=== PATIENT | female | born 1955 | race American Indian/Alaskan Native ===

== ENCOUNTER 2017-10-16 17:54 | Inpatient (IN) | payer BC, OTHER ==
[2017-10-16] MEDS ORDERED: LASIX IV ONE (18:33)
--- NOTE | 2017-10-16 18:49 | Emergency Department Report ---
HPI - HPI HPI: The patient is a 61-year-old female with a history of heart failure, sleep apnea , hypothyroidism, and a pituitary tumor for the past 20-30 years who presents for evaluation of dyspnea. The patient reports constant and severe dyspnea last night, exacerbated with exertion or lying down. She also reports experiencing an on and off cough for the past couple weeks. She admits to episodes of tightness of the chest as well, not present currently. She has secondary complaint of off and on shaking of the extremities, not associated with a loss of consciousness. She admits to generalized weakness, but has not experienced any lateralizing focal motor deficit. She denies fever, abdominal pain, vomiting, diarrhea, hemoptysis, syncope, unilateral leg swelling, paresthesia, rash. <MERLYN MOON - Last Filed: 10/16/17 19:32> <ANAYA PAYAN - Last Filed: 10/17/17 00:41> - General Time Seen by Provider: 10/16/17 18:20 ED Past Medical Hx - Past Medical History Previous Medical History?: Yes Hx Hypertension: Yes Hx Congestive Heart Failure: Yes Hx Diabetes: Yes Hx Pulmonary Embolism: Yes Hx GERD: Yes Hx Sickle Cell Disease: No (SST) Hx Arthritis: Yes Hx Headaches / Migraines: Yes Additional medical history: thyroid/ low platelets/ pe years ago, hx pituitary tumor - Surgical History Past Surgical History?: Yes Additional Surgical History: c section/ spleenectomy/ fibroids - Social History Smoking Status: Never Smoker Substance Use Type: None <MERLYN MOON - Last Filed: 10/16/17 19:32> <ANAYA PAYAN - Last Filed: 10/17/17 00:41> - Medications Home Medications: Home Medications Medication Instructions Recorded Confirmed Last Taken Type Cetirizine HCl 10 mg PO DAILY 03/12/14 03/12/14 03/11/14 History Ergocalciferol [Vitamin D2] 50,000 units PO QWEEK 03/12/14 03/12/14 03/07/14 History Furosemide 20 mg PO DAILY 03/12/14 03/12/14 03/11/14 History Glimepiride 2 mg PO DAILY 03/12/14 03/12/14 03/11/14 History Levothyroxine [Synthroid] 150 mcg PO DAILY 03/12/14 03/12/1403/11/15 History Metoprolol Succinate [Metoprolol 50 mg PO DAILY 03/12/14 03/12/14 03/11/14 History SUCCINATE ER TAB] Olmesartan Medoxomil [Benicar] 40 mg PO DAILY 03/12/14 03/12/14 03/11/14 History Omeprazole 20 mg PO DAILY 03/12/14 03/12/14 03/11/14 History Potassium 10 meq PO DAILY 03/12/14 03/12/14 03/11/14 History hydroCHLOROthiazide [HCTZ] 12.5 mg PO DAILY 03/12/14 03/12/14 03/11/14 History ED Review of Systems ROS: Stated complaint: CHERYL Other details as noted in HPI Constitutional: denies: fever ENT: denies: throat or neck pain Respiratory: reports cough, shortness of breath Cardiovascular: reports chest tightness Endocrine: denies unexplained weight loss or gain Gastrointestinal: denies: abdominal pain, nausea Genitourinary: denies: dysuria Musculoskeletal: denies: leg swelling Skin: denies: rash Neurological: reports tremor denies: headache Hematological/Lymphatic: denies: easy bleeding or easy bruising Psych: denies sadness or hopelessness <MERLYN MOON - Last Filed: 10/16/17 19:32> ROS: Stated complaint: CHERYL Other details as noted in HPI <ANAYA PAYAN - Last Filed: 10/17/17 00:41> Physical Exam - Physical Exam Vital Signs: Vital Signs 10/16/17 10/16/17 18:15 18:26 Temperature 99.5 F Pulse Rate 97 H Blood Pressure 169/70 169/70 O2 Sat by Pulse 98 95 Oximetry Physical Exam: General: well-nourished, well-developed, no acute distress Head: Normocephalic, atraumatic Eyes: normal sclera ENT: Mucous membranes are pink and moist Neck: trachea midline, neck supple, No neck stiffness, no cervical adenopathy Respiratory: Breath sounds equal bilaterally, no wheezing, rales, or rhonchi Cardio: S1 and S2 present, no murmurs, rubs, gallops, capillary refill is brisk Abdomen: Normoactive bowel sounds, soft abdomen, no rigidity, no guarding or rebound tenderness Chest WALL/Back: No tenderness to palpation of the chest wall, no CVA tenderness with percussion Musc: 1+ pitting edema of bilateral lower legs Skin: No rash Neuro: no facial drooping, normal speech Psych: Normal affect <MERLYN MOON P - Last Filed: 10/16/17 19:32> - Physical Exam Vital Signs: Vital Signs 10/16/17 10/16/17 10/16/17 18:15 18:26 18:45 Temperature 99.5 F Pulse Rate 97 H 84 Respiratory 13 Rate Blood Pressure 169/70 169/70 169/70 O2 Sat by Pulse 98 95 96 Oximetry 10/16/17 10/16/17 10/16/17 19:19 20:23 20:25 Temperature Pulse Rate 73 Respiratory 18 10 L 26 H Rate Blood Pressure 169/70 131/68 O2 Sat by Pulse 98 94 Oximetry 10/16/17 10/16/17 10/16/17 20:31 21:00 22:01 Temperature Pulse Rate 71 76 69 Respiratory 15 30 H Rate Blood Pressure 131/68 125/72 131/68 O2 Sat by Pulse 97 92 Oximetry 10/16/17 22:31 Temperature Pulse Rate 71 Respiratory 15 Rate Blood Pressure 125/72 O2 Sat by Pulse 95 Oximetry <ANAYA PAYAN - Last Filed: 10/17/17 00:41> ED Course Vital Signs 10/16/17 10/16/17 18:15 18:26 Temperature 99.5 F Pulse Rate 97 H Blood Pressure 169/70 169/70 O2 Sat by Pulse 98 95 Oximetry <MERLYN MOON P - Last Filed: 10/16/17 19:32> Vital Signs 10/16/17 10/16/17 10/16/17 18:15 18:26 18:45 Temperature 99.5 F Pulse Rate 97 H 84 Respiratory 13 Rate Blood Pressure 169/70 169/70 169/70 O2 Sat by Pulse 98 95 96 Oximetry 10/16/17 10/16/17 10/16/17 19:19 20:23 20:25 Temperature Pulse Rate 73 Respiratory 18 10 L 26 H Rate Blood Pressure 169/70 131/68 O2 Sat by Pulse 98 94 Oximetry 10/16/17 10/16/17 10/16/17 20:31 21:00 22:01 Temperature Pulse Rate 71 76 69 Respiratory 15 30 H Rate Blood Pressure 131/68 125/72 131/68 O2 Sat by Pulse 97 92 Oximetry 10/16/17 22:31 Temperature Pulse Rate 71 Respiratory 15 Rate Blood Pressure 125/72 O2 Sat by Pulse 95 Oximetry <ANAYA PAYAN - Last Filed: 10/17/17 00:41> ED Medical Decision Making - Lab Data Result diagrams: 10/16/17 18:35 10/16/17 18:35 - Medical Decision Making The patient was seen and examined by myself. The patient is placed on a monitor worker and continuous pulse ox. On initial evaluation, the patient was found to be in no distress. EKG was negative for findings suggestive of acute cardiac infarct. The patient is given lasix for txt of suspected CHF. Labs and imaging are obtained. Chest x-ray exhibits some mild pulmonary vascular congestion. ABG reveals low PaO2 of 61. Lab results otherwise were non-revealing including negative troponin , WBC, hemoglobin, hematocrit, electrolytes, renal function, ammonia level, and BNP. As patient is found to be hypoxemic with normal BNP, and without obvious other source of hypoxemia, the patient will receive CT angiogram of the chest to rule out pulmonary embolism. CTA is pending. The patient was signed off to Dr. Payan, who agrees accept care of the patient and to ultimately arrange appropriate disposition of the patient. <MERLYN MOON Dalton - Last Filed: 10/16/17 19:32> - Lab Data Result diagrams: 10/16/17 18:35 10/16/17 18:35 - EKG Data -: EKG Interpreted by Oh - EKG Data 10/17/17 00:30 EKG shows sinus rhythm rate of 78 axis leftward intervals are normal there is incomplete right bundle branch block and left anterior fascicular block present. Patient has LVH N [facility] ST elevation or depression time of interpretation 1948 - Radiology Data Nuclear Medicine Report Signed Patient: DARLYN CANNON MR#: [id number] : 1955 Acct:[id number] Age/Sex: 61 / F ADM Date: 10/16/17 Loc: ED Attending Dr: Ordering Physician: ANAYA PAYAN MD Date of Service: 10/16/17 Procedure(s): NM lung scan perf/vent Accession Number(s): [id number] cc: ANAYA PAYAN MD FINAL REPORT PROCEDURE: NM LUNG SCAN PERF/VENT TECHNIQUE: 4.7 mCi Tc-99m MAA was injected IV for pulmonary perfusion imaging in multiple projections. 25.2 millicuries 133 Xenon was inhaled for pulmonary ventilation imaging in multiple projections. Injection site: RIGHT antecubital fossa. CPT 75016 . HISTORY: dyspnea, hypoxia COMPARISON: No prior studies are available for comparison. FINDINGS: There is a large perfusion defect involving the posterior basal segment of the left lower lobe. Small perfusion defect visualized posterior basal segment right lower lobe. On the ventilation portion the scanned no definite defects are identified. Normal wash-in and washout visualized. IMPRESSION: Intermediate probability pulmonary embolus. Transcribed By: BONNY Dictated By: RIZWAN MORENO MD Electronically Authenticated By: RIZWAN MORENO MD Signed Date/Time: 10/16/172238 - Medical Decision Making The patient is a [place] patient did speak with Dr. Mcguire with [facility] who stated that they believe the patient should stay at our facility for treatment. Discussed case with Dr. alexander Raya with the hospitalist group. Even though the patient has a history of thrombocytopenia platelet count fine at this time. Patient be given first dose of Lovenox and hematology may be consult it to discuss further management for PE. Patient is on 2 L of oxygen and was otherwise stable patient be admitted at this time. <ANAYA PAYAN - Last Filed: 10/17/17 00:41> Critical care attestation.: If time is entered above; I have spent that time in minutes in the direct care of this critically ill patient, excluding procedure time. <MERLYN MOON P - Last Filed: 10/16/17 19:32> Critical Care Time: Yes (30) Critical care attestation.: If time is entered above; I have spent that time in minutes in the direct care of this critically ill patient, excluding procedure time. <ANAYA PAYAN - Last Filed: 10/17/17 00:41> ED Disposition Is pt being admited?: Yes Does the pt Need Aspirin: Yes Time of Disposition: 18:52 <MERLYN MOON - Last Filed: 10/16/17 19:32> Is pt being admited?: Yes Does the pt Need Aspirin: No <ANAYA PAYAN - Last Filed: 10/17/17 00:41> Clinical Impression: Acute chest pain, Acute hypoxemic respiratory failure Pulmonary embolism Qualifiers: Pulmonary embolism type: other Chronicity: acute Acute cor pulmonale presence: without acute cor pulmonale Qualified Code(s): I26.99 - Other pulmonary embolism without acute cor pulmonale Disposition: DC-09 OP ADMIT IP TO THIS HOSP Condition: Fair Instructions: Chest Pain (ED) Referrals: PRIMARY CARE,MD [Primary Care Provider] - 3-5 Days
[2017-10-16] MEDS ORDERED: BABY ASPIRIN PO ONE (18:53)
[2017-10-16 18:55] LABS: Basophils # (Auto) 0.1 K/mm3 (0.0-0.1); Basophils % (Auto) 0.7 % (0.0-1.8); Eosinophils # (Auto) 0.3 K/mm3 (0.0-0.4); Eosinophils % (Auto) 2.7 % (0.0-4.3); Hematocrit 42.5 % (30.3-42.9); Hemoglobin 13.9 gm/dl (10.1-14.3); Lymphocytes # (Auto) 3.3 K/mm3 (1.2-5.4); Lymphocytes % (Auto) 27.9 % (13.4-35.0); Mean Corpuscular HGB Conc 33 % (30-34); Mean Corpuscular Hemoglobin 30 pg (28-32); Mean Corpuscular Volume 91 fl (79-97); Monocytes # (Auto) 1.1 K/mm3 (0.0-0.8); Monocytes % (Auto) 9.2 % (0.0-7.3); Platelet Count 160 K/mm3 (140-440); Red Blood Count 4.65 M/mm3 (3.65-5.03); Red Cell Distribution Width 14.1 % (13.2-15.2)
[2017-10-16 19:16] LABS: Alanine Aminotransferase 37 units/L (7-56); Albumin 3.9 g/dL (3.9-5); BUN/Creatinine Ratio 14; Blood Urea Nitrogen 13 mg/dL (7-17); Calcium 9.3 mg/dL (8.4-10.2); Hemolysis Index 11
--- NOTE | 2017-10-16 19:33 | XRay Report ---
FINAL REPORT PROCEDURE: XR CHEST 1V AP TECHNIQUE: Chest radiograph anteroposterior view. CPT 26573 HISTORY: dyspnea COMPARISON: No prior studies are available for comparison. FINDINGS: Heart: Magnified due to projection appears to be upper normal size.. Mediastinum/Vessels: Normal. Lungs/Pleural space: Normal. Bony thorax: No acute osseous abnormality. Life support devices: None. IMPRESSION: Heart size upper normal. No other abnormalities are identified..
--- NOTE | 2017-10-16 20:17 | Cat Scan Report ---
FINAL REPORT PROCEDURE: CT HEAD/BRAIN WO CON TECHNIQUE: Computerized tomography of the head was performed without contrast material. HISTORY: tremor weak, 30 yr hx of stable pituitary tumor COMPARISON: No prior studies are available for comparison. FINDINGS: Brain: Brain density appears normal. No evidence of intracranial hemorrhage. No parenchymal hemorrhage, mass lesions or mass effect are seen. No abnormal extraxial fluid collects or masses are seen. Sella turcica appears larger than expected. I cannot exclude pituitary enlargement or mass. This could be an artifact from an empty sella. Ventricles: Ventricles are normal size and are midline. Cavum septum pellucidum present, normal variant. Bone Windows: No evidence of skull fracture. Paranasal sinuses: Visualized portions appear clear. Mastoid air cells: Clear IMPRESSION: No acute intracranial abnormalities are seen. Prominent sella turcica as described. If further evaluation is clinically indicated MRI could be performed. No acute intracranial abnormalities are identified.
--- NOTE | 2017-10-16 22:41 | Nuclear Medicine Report ---
FINAL REPORT PROCEDURE: NM LUNG SCAN PERF/VENT TECHNIQUE: 4.7 mCi Tc-99m MAA was injected IV for pulmonary perfusion imaging in multiple projections. 25.2 millicuries 133 Xenon was inhaled for pulmonary ventilation imaging in multiple projections. Injection site: RIGHT antecubital fossa. CPT 98672 . HISTORY: dyspnea, hypoxia COMPARISON: No prior studies are available for comparison. FINDINGS: There is a large perfusion defect involving the posterior basal segment of the left lower lobe. Small perfusion defect visualized posterior basal segment right lower lobe. On the ventilation portion the scanned no definite defects are identified. Normal wash-in and washout visualized. IMPRESSION: Intermediate probability pulmonary embolus.
[2017-10-17] MEDS ORDERED: LOVENOX SUB-Q ONE (00:39)
[2017-10-17] MEDS ORDERED: MORPHINE IV PRN (02:46)
[2017-10-17] MEDS ORDERED: TYLENOL PO PRN (02:47)
[2017-10-17] MEDS ORDERED: ZOFRAN IV PRN (02:47)
[2017-10-17] MEDS ORDERED: D50W (25GM) Syringe IV PRN (02:58)
--- NOTE | 2017-10-17 06:09 | History and Physical Report ---
CHIEF COMPLAINT: Difficulty in breathing. HISTORY OF PRESENT ILLNESS: The patient is a 61-year-old female who said that she has been having shortness of breath going on since last night, which was exacerbated by lying down. There was also some chest discomfort and the patient said that these symptoms were preceded by a cough that was coming on and off. The patient described the chest discomfort as tightness in the chest. There was no history of the diaphoresis, but the patient admitted to feeling weak all over and denied history of fever, nausea or vomiting and presented for evaluation. PAST MEDICAL HISTORY: Pertinent for hypertension, congestive heart failure, diabetes mellitus, pulmonary embolism, gastroesophageal reflux disease, arthritis, migraine headache, thrombocytopenia, pituitary tumor, thyroid disease. PAST SURGICAL HISTORY: Pertinent for splenectomy, fibroid surgery, . FAMILY HISTORY: Family history is noncontributory. SOCIAL HISTORY: The patient does not smoke, does not drink alcohol and does not use illicit drugs. MEDICATIONS: The patient is on cetirizine 10 mg by mouth daily, vitamin D3 50,000 units by mouth every week, Lasix 20 mg by mouth daily, glimepiride 2 mg by mouth daily, levothyroxine (Synthroid) 150 mcg by mouth daily, metoprolol succinate 50 mg by mouth daily, Benicar 40 mg by mouth daily, omeprazole 20 mg by mouth daily, potassium supplement 10 mEq by mouth daily, hydrochlorothiazide 12.5 mg by mouth daily. ALLERGIES: THE PATIENT IS ALLERGIC TO DIPHENHYDRAMINE HYDROCHLORIDE AND IODINE. REVIEW OF SYSTEMS: CONSTITUTIONAL: There is no fever, no chills, no diaphoresis. HEENT: There is no headache or sore throat. CARDIOVASCULAR SYSTEM: There is chest tightness with no orthopnea. RESPIRATORY SYSTEM: Shortness of breath is present. Cough is present. GASTROINTESTINAL SYSTEM: There is no nausea, no vomiting. No abdominal pain, diarrhea, or constipation. NEUROLOGICAL SYSTEM: There is no numbness, no dizziness, no altered mental status. MUSCULOSKELETAL SYSTEM: There is no joint pain or swelling. DERMATOLOGICAL SYSTEM: There is no skin rash or itching. GENITOURINARY SYSTEM: There is no dysuria, hematuria, or flank pain. Rest of system review is normal. PHYSICAL EXAMINATION: GENERAL: At the time of exam, the patient was found to be alert, oriented x 3 and not in acute distress. VITAL SIGNS: Show temperature of 99.5 degrees Fahrenheit, pulse of 97, respiration of 18, blood pressure of 169/70, O2 sat of 98% on room air. HEENT: Shows pupils to be equal, round, reactive to light and accommodation. Extraocular muscles are intact. NECK: Supple with no JVD or carotid bruit. CARDIOVASCULAR SYSTEM: Shows normal first and second heart sounds with no gallops or murmurs. RESPIRATORY SYSTEM: Shows good air entry on both sides of the lung with no abnormal breath sounds. GASTROINTESTINAL SYSTEM: Shows abdomen to be full, soft, nontender with no organomegaly or rigidity. NEUROLOGIC: Shows no focal deficit. MUSCULOSKELETAL SYSTEM: Shows no joint swelling or tenderness. DERMATOLOGICAL SYSTEM: Shows no skin rash. GENITOURINARY SYSTEM: Showing no costovertebral angle tenderness. PERTINENT LABORATORY DATA AND IMAGING STUDIES: The patient had CBC done with elevated white count of 11,900, normal hemoglobin, normal hematocrit with CBC differential showing elevated monocyte count of 9.2. The patient's ABG showing normal pH, normal pCO2 and low pO2 of 61, which was done on room air. The patient's chemistry was unremarkable. IMAGING STUDIES: The patient has CT of the head done that shows no acute intracranial abnormalities. Also, the patient had chest x-ray done that shows no abnormality. However, the patient had V/Q scan done that shows intermediate probability for pulmonary embolism in both lungs. DIAGNOSIS: Bilateral pulmonary embolism. PLAN OF ACTION: 1. The patient will be admitted to telemetry. We will continue subcutaneous Lovenox, which was started in the Emergency Room because of concern about the patient's history of thrombocytopenia. 2. The patient will be started on Coumadin 5 mg daily, which will be dosed by pharmacy and then the patient will be offered the choice of going on to the new anticoagulants like Xarelto or Eliquis. 3. The patient will be on IV morphine 2 mg every 4 hours as needed for pain and IV Zofran 4 mg every 8 hours for nausea and vomiting. 4. The patient will have PT/INR checked this morning. 5. The patient's diet will be consistent carbohydrate, low sodium diet with Accu-Chek a.c. and at bedtime, followed by low-dose sliding scale using regular insulin coverage. 6. The patient will be on oxygen by nasal cannula at 2 liters per minute. 7. The patient will have bilateral Doppler ultrasound of the lower extremities done to determine the source of the pulmonary embolism. 8. The patient's home medications will be started as shown on the medication reconciliation section. JOB# [id number] OCN/NTS
[2017-10-17] MEDS: SYNTHROID PO SCH (07:52)
[2017-10-17] MEDS: HumuLIN R SUB-Q SCH ×4 (08:13→23:25)
[2017-10-17] MEDS ORDERED: OLMESARTAN MEDOXOMIL 40 MG PO SCH (10:00)
[2017-10-17] MEDS ORDERED: CETIRIZINE HCL 10 MG PO SCH (10:00)
[2017-10-17] MEDS ORDERED: METOPROLOL SUCCINATE 50 MG PO SCH (10:00)
[2017-10-17] MEDS: COZAAR PO SCH (13:20)
[2017-10-17] MEDS: TOPROL XL PO SCH (13:21)
[2017-10-17] MEDS: LASIX PO SCH (13:21)
[2017-10-17] MEDS: CLARITIN PO SCH (13:22)
[2017-10-17] MEDS: LOVENOX SUB-Q SCH ×2 (13:22→21:44)
[2017-10-17] MEDS: HCTZ PO SCH (13:22)
[2017-10-17] MEDS ORDERED: COUMADIN PO SCH (17:00)
[2017-10-18 06:08] LABS: INR 1.05 (0.87-1.13)
[2017-10-18] MEDS: SYNTHROID PO SCH (06:39)
[2017-10-18] MEDS: TOPROL XL PO SCH (10:53)
[2017-10-18] MEDS: COZAAR PO SCH (10:53)
[2017-10-18] MEDS: LASIX PO SCH (10:54)
[2017-10-18] MEDS: CLARITIN PO SCH (10:54)
[2017-10-18] MEDS: HCTZ PO SCH (10:54)
[2017-10-18] MEDS: LOVENOX SUB-Q SCH (10:55)
[2017-10-18] MEDS: HumuLIN R SUB-Q SCH ×3 (10:55→22:19)
[2017-10-18 15:03] LABS: Hematocrit 45.1 % (30.3-42.9); Hemoglobin 14.8 gm/dl (10.1-14.3); Mean Corpuscular HGB Conc 33 % (30-34); Mean Corpuscular Hemoglobin 30 pg (28-32); Mean Corpuscular Volume 90 fl (79-97); Platelet Count 169 K/mm3 (140-440); Red Blood Count 4.99 M/mm3 (3.65-5.03); Red Cell Distribution Width 14.2 % (13.2-15.2)
[2017-10-18] MEDS ORDERED: COUMADIN PO SCH (17:00)
[2017-10-18 17:29] LABS: Basophils % (Manual) 0 % (0.0-1.8); Total Cells Counted 100
[2017-10-18 17:30] LABS: Large Platelets 1+; Platelet Estimate Consistent w Auto; RBC Morphology Normal
--- NOTE | 2017-10-18 17:36 | Vascular Lab Report ---
LOWER EXTREMITY VENOUS DUPLEX: REASON FOR EXAM: Pulmonary embolism. COMMENTS ON THE RIGHT: All veins visualized are freely compressible without evidence of internal echogenicity. Flow is spontaneous and phasic throughout. COMMENTS ON THE LEFT: All veins visualized are freely compressible without evidence of internal echogenicity. Flow is spontaneous and phasic throughout. IMPRESSION: No evidence of acute or chronic deep venous thrombosis in either lower extremity.
[2017-10-18] MEDS: ELIQUIS PO SCH (22:18)
[2017-10-19 05:32] VITALS: BP 129/69
[2017-10-19] MEDS: SYNTHROID PO SCH (06:15)
[2017-10-19 06:32] LABS: Basophils # (Auto) 0.1 K/mm3 (0.0-0.1); Basophils % (Auto) 0.9 % (0.0-1.8); Eosinophils # (Auto) 0.5 K/mm3 (0.0-0.4); Eosinophils % (Auto) 5.4 % (0.0-4.3); Hemoglobin 14.5 gm/dl (10.1-14.3); Lymphocytes # (Auto) 4.1 K/mm3 (1.2-5.4); Lymphocytes % (Auto) 45.1 % (13.4-35.0); Mean Corpuscular HGB Conc 33 % (30-34); Mean Corpuscular Hemoglobin 30 pg (28-32); Mean Corpuscular Volume 91 fl (79-97); Monocytes # (Auto) 0.7 K/mm3 (0.0-0.8); Monocytes % (Auto) 7.9 % (0.0-7.3); Platelet Count 165 K/mm3 (140-440); Red Blood Count 4.81 M/mm3 (3.65-5.03)
[2017-10-19 06:46] LABS: INR 1.17 (0.87-1.13)
[2017-10-19 06:54] LABS: BUN/Creatinine Ratio 14; Blood Urea Nitrogen 14 mg/dL (7-17); Calcium 9.3 mg/dL (8.4-10.2); Hemolysis Index 7
[2017-10-19] MEDS: HumuLIN R SUB-Q SCH ×2 (08:29→12:51)
[2017-10-19] MEDS: TOPROL XL PO SCH (10:04)
[2017-10-19] MEDS: CLARITIN PO SCH (10:04)
[2017-10-19] MEDS: COZAAR PO SCH (10:05)
[2017-10-19] MEDS: ELIQUIS PO SCH (10:05)
[2017-10-19] MEDS: HCTZ PO SCH (10:05)
[2017-10-19] MEDS: LASIX PO SCH (10:05)
[2017-10-19] MEDS ORDERED: GLIMEPIRIDE 2 MG PO SCH (13:00)
--- NOTE | 2017-10-19 13:02 | Discharge Summary ---
Providers - Providers Date of Admission: 10/17/17 02:45 Attending physician: JESSICA CALIX MD Primary care physician: CASHIER CHECKER Hospitalization Reason for admission: acute shortness of breath Condition: Stable Hospital course: The patient is a 61-year-old female with a history of heart failure, sleep apnea , hypothyroidism, and a pituitary tumor for the past 20-30 years who presents for evaluation of dyspnea. The patient reports constant and severe dyspnea last night, exacerbated with exertion or lying down. She also reports experiencing an on and off cough for the past couple weeks. She admits to episodes of tightness of the chest as well, not present currently. She has secondary complaint of off and on shaking of the extremities, not associated with a loss of consciousness. She admits to generalized weakness, but has not experienced any lateralizing focal motor deficit. She denies fever, abdominal pain, vomiting, diarrhea, hemoptysis, syncope, unilateral leg swelling, paresthesia, rash. Patient has had multiple pulmonary embolism in the past also noted to have trouble cytopenia which has improved was initially thought to be having acute pulmonary embolism due to VQ scan which was read as indeterminate. Upon improvement of symptoms limited as the patient about her contrast allergy she reports that she has had contrast before but the only allergy she has had was a second episode which R [place] stress test. She proceeded to have a CTA which was unremarkable for pulmonary embolism she is clinically improved felt that she may have had a viral bronchitis. We did discuss weight loss modalities and the patient verbalized understanding. Today's my first day seeing this patient as I was covering for a physician 1 acute respiratory failure secondary to acute bronchitis 2. Acute bronchitis 3. Morbid obesity 4. Hypothyroidism Disposition: - TO HOME OR SELFCARE Time spent for discharge: 35 mins Core Measure Documentation - Palliative Care Palliative Care/ Comfort Measures: Not Applicable - Core Measures Any of the following diagnoses?: none - VTE Discharge Requirements Deep Vein Thrombosis/Pulmonary Embolism Present on Admission: No Exam - Physical Exam Narrative exam: VITAL SIGNS: Reviewed. GENERAL: The patient appeared well nourished and normally developed. Vital signs as documented. HEAD: No signs of head trauma. EYES: Pupils are equal. Extraocular motions intact. EARS: Hearing grossly intact. MOUTH: Oropharynx is normal. NECK: No adenopathy, no JVD. CHEST: Chest with clear breath sounds bilaterally. No wheezes, rales, or rhonchi. CARDIAC: Regular rate and rhythm. S1 and S2, without murmurs, gallops, or rubs. VASCULAR: No Edema. Peripheral pulses normal and equal in all extremities. ABDOMEN: Soft, without detectable tenderness. No sign of distention. No rebound or guarding, and no masses palpated. Bowel Sounds normal. MUSCULOSKELETAL: Good range of motion of all major joints. Extremities without clubbing, cyanosis or edema. NEUROLOGIC EXAM: Alert and oriented x 3. No focal sensory or strength deficits. Speech normal. Follows commands. PSYCHIATRIC: Mood normal. SKIN: No rash or lesions. - Constitutional Vitals: Temp Pulse Resp BP Pulse Ox 98.7 F 60 20 129/69 95 10/19/17 04:41 10/19/17 04:41 10/19/17 04:41 10/19/17 04:41 10/19/17 04:41 Plan Activity: advance as tolerated, fall precautions Diet: diabetic Special Instructions: record daily weights, record daily BP diary Follow up with: PRIMARY CARE, [Primary Care Provider] - 3-5 Days Prescriptions: Amoxicillin/Potassium Clav [Augmentin 875-125 Tablet] 1 each PO BID #10 tablet Prednisone [predniSONE 5 mg (6-Day Pack, 21 Tabs)] 5 mg PO .TAPER #1 tab.ds.pk
--- NOTE | 2017-10-19 16:27 | Cat Scan Report ---
FINAL REPORT EXAM: CT ANGIO CHEST HISTORY: pulmonary embolisim TECHNIQUE: CT examination of the chest with IV contrast CT angiographic 2D and thick slab 3D image post-processing PRIORS: Nuclear medicine lung V/Q scan 10/16/2017 and one-view chest 10/16/2017 FINDINGS: Slight cardiomegaly without pericardial effusion. Intact normal caliber thoracic aorta. Normal-appearing esophagus. No hilar mass or mediastinal adenopathy. The visualized pulmonary arteries are diffusely patent bilaterally. There is no filling defect to suggest PE. Surgically absent spleen. 1 mm nonobstructing left renal calculus. Slight degenerative change in the regional skeleton. No pneumothorax or pleural effusion. No CT visible airway filling defect. Linear scar versus atelectasis in both lower lobe bases. Nonspecific slight patchy opacity scattered in both lower lobes and left upper lobe may reflect scar, edema, and/or pneumonitis. No significant pulmonary consolidation. 5 mm nonspecific ground-glass nodular opacity in the anterior right upper lobe, series 2, image 55. IMPRESSION: 5 mm nonspecific ground-glass nodular opacity in the anterior right upper lobe may be scar or inflammation. Slight cardiomegaly 1 mm nonobstructing left renal calculus Linear scar versus atelectasis in both lung bases Scattered patchy opacities in both lungs may reflect scar, edema, and/or pneumonitis No CT evidence of PE
[2017-10-19] MEDS ORDERED: GLUCOPHAGE PO SCH (22:00)
[2017-10-20] MEDS ORDERED: AMARYL PO SCH (08:00)
[2017-10-23] MEDS ORDERED: VITAMIN D2 PO SCH (10:00)
== END 2017-10-19 23:11 | disposition home or self-care (01) | DRG 189 ==
LOC: ED 17:54 → 4A 10-17 02:45
PROVIDERS: ADMIT Internal Medicine; ATTEND Internal Medicine
PROC: 4A033R1 Measurement of Arterial Saturation, Peripheral, Percutaneous Approach (ICD-10-PCS; principal; 2017-10-16)
DX: J96.01 Acute respiratory failure with hypoxia (principal); I11.0 Hypertensive heart disease with heart failure; I50.9 Heart failure, unspecified; E11.9 Type 2 diabetes mellitus without complications; K21.9 Gastro-esophageal reflux disease without esophagitis; M19.90 Unspecified osteoarthritis, unspecified site; G43.909 Migraine, unspecified, not intractable, without status migrainosus; E03.9 Hypothyroidism, unspecified; Z88.8 Allergy status to other drugs, medicaments and biological substances; Z88.6 Allergy status to analgesic agent; Z91.041 Radiographic dye allergy status; Z90.81 Acquired absence of spleen
CPT/HCPCS: 36415; 70450; 71045; 71275; 78582; 80048; 80053; 82140; 82803; 82962; 83880; 84484; 85007; 85025; 85379; 85610; 93005; 93010; 93970; 94760; A9540; A9558; J1650; J1815; J1940; Q9967